=== PATIENT | male | born 1965 | race African-American/Black ===

== ENCOUNTER → 2024-09-25 14:09 | Outpatient (REF) | payer BC, SELFPAY | LOC: RCS 14:09 | PROVIDERS: ATTENDING PHYSICIAN Internal Medicine Cardiovascular Disease; FAMILY PHYSICIAN Internal Medicine; OTHER PHYSICIAN Internal Medicine Endocrinology, Diabetes & Metabolism; REFERRING PHYSICIAN Thoracic Surgery (Cardiothoracic Vascular Surgery) | DX: I48.0 Paroxysmal atrial fibrillation (principal) | CPT/HCPCS: 93005 ==

== ENCOUNTER 2024-09-28 07:07 | Day surgery (SDC) | payer BC, SELFPAY ==
--- NOTE | 2024-09-28 13:08 | ITS.CL.CARDI ---
Reagent Tender - Cardioversion
Cardioversion
Procedure Report:
Date of Procedure: 09/28/24
Procedure: Cardioversion
Indication: Symptomatic atrial fibrillation
Performing Physician: Ailyn Melgoza DO [facility]
Anticoagulation: Eliquis
Technique: The patient was brought to the holding area. Signed informed consent was obtained. A time out was called and performed. The patient was anesthetized by the anesthesia service. Anticoagulation status was reviewed and appropriate. R2 pads
were placed anteriorly and posteriorly. A 200 J synchronized biphasic shock restored normal sinus rhythm without significant bradycardia. There were no complications.
Conclusion: Uncomplicated cardioversion from atrial fibrillation to sinus rhythm.
Recommendation: Routine post cardioversion care. Continue senior living anticoagulation.
== END 2024-09-28 09:10 | disposition home or self-care (01) ==
LOC: CATH 07:07
PROVIDERS: ATTENDING PHYSICIAN Internal Medicine Cardiovascular Disease; FAMILY PHYSICIAN Internal Medicine; OTHER PHYSICIAN Internal Medicine Cardiovascular Disease
DX: Z79.01 Long term (current) use of anticoagulants (principal); I48.91 Unspecified atrial fibrillation
CPT/HCPCS: 92960; 93005

== ENCOUNTER 2024-10-04 16:22 | Emergency (ER) | payer BC, SELFPAY ==
[2024-10-04] VITALS (11 sets, daily range): BP systolic 125–147; BP diastolic 79–88; PULSE 68–84; BMI 39.5
[2024-10-04 17:29] LABS: % Basophils 0.6 % (0-2); % Eosinophils 4.4 % (0-6); % Immature Granulocytes 0.2 % (0-0.5); % Lymphocytes 15.7 % (20.5-51.1); % Monocytes 8.4 % (1.7-9.3); % Neutrophils 70.7 % (42.2-75.2); Absolute Basophils 0.1 10^3/uL (0-0.2); Absolute Eosinophils 0.4 10^3/uL (0-0.7); Absolute Lymphocytes 1.4 10^3/uL (1.2-3.4); Absolute Monocytes 0.8 10^3/uL (0.1-0.6); Absolute Neutrophils 6.4 10^3/uL (1.4-6.5); Hematocrit 46.1 % (39.0-52.0); Mean Corp Hgb Conc. 32.5 g/dL (33.0-37.0); Mean Corpuscular Hgb 29.8 pg (27.0-31.0); Mean Corpuscular Volume 91.5 fL (80.0-94.0); Nucleated Red Blood Cells % 0 % (-); Platelet Count 168 10^3/uL (130-400); Red Blood Cell Count 5.04 10^6/uL (4.70-6.10); White Blood Cell Count 9.1 10^3/uL (4.8-10.8)
[2024-10-04 18:38] LABS: ALT (SGPT) 55 U/L (0-50); AST (SGOT) 41 U/L (17-59); Albumin 3.6 g/dl (3.5-5.0); Alkaline Phosphatase 70 U/L (38-126); Blood Urea Nitrogen 22 mg/dl (9-20); Calcium 8.7 mg/dl (8.4-10.2); Carbon Dioxide 23 mmol/L (22-30); Estimated Creatinine Clearance 86 ml/min; Glucose 83 mg/dl (70-99); Total Bilirubin 0.4 mg/dl (0.2-1.3); Total Protein 6.7 g/dl (6.3-8.2); eGFR > 60.00
--- NOTE | 2024-10-04 18:53 | ED.GENMED ---
History of Present Illness
General
Chief Complaint: Fainting Sensation
Source: patient
Exam Limitations: none
Time Seen by Provider: 10/04/24 18:27
History of Present Illness
History of Present Illness:
This is a 59 year old male that comes in with c/o near syncope. State that he was in the bathroom on the toilet. Stats that he was sweaty and hot. States that he told his he did not feel well and she took his BP and it was 86/66. States that he
had also given himself an enema earlier and 4 min later he had the stool. States that he was not baring down. States that he did have some nausea. Denies any fever, chills, chest pain, SOB, vomiting, abd pain, diarrhea, black or blood stool,
Headache, dizziness, urinary burning.
Past History
Past History
ED Past Medical History: Arrthythmia (Atrial fib), HTN, Hypercholesterolemia and Other (type B aortic dissection)
ED Past Surgical History: Orthopedic (Bilateral patellar rupture, ) and Other (Gastric sleeve, )
Social History
Tobacco: Non-smoker
Alcohol: None
Drug: None
Personal:
Living: with family
Employment: Employed
Family History
Family History: Early CAD
Review of Systems
Review of Systems
All Other Systems: ROS reviewed and negative except as documented in HPI and ROS
Constitutional: Reports no symptoms; Denies fever or chills
EENT: Reports no symptoms
Respiratory: Reports no symptoms; Denies cough or trouble breathing
Cardiac: Reports no symptoms; Denies chest pain
ABD/GI: Reports nausea; Denies abdominal pain, vomiting, diarrhea, bloody stools or black stools
: Reports no symptoms; Denies dysuria or urgency
Musculoskeletal: Reports no symptoms
Skin: Reports no symptoms
Neurological: Reports no symptoms; Denies dizzy or headache
Psychiatric: Reports no symptoms
Phy Exam
General Physical Exam
General Presentation: well appearing and no apparent distress
General age: appears stated age
General Skin: warm and dry
General Habitus: normal
General Mental: alert
General Hydration: dry mucous membranes
ENT Exam
ENT Exam: TM's normal, pharynx normal and neck supple
Eye Exam
Eye Exam: EOMI
Cardiovascular Exam
Cardiovascular Exam: regular rate/rhythm, no edema, no murmur and normal peripheral pulses
Pulmonary Exam
Pulmonary Exam: lungs clear, no respiratory distress, no rales, chest non tender, no crackles, no rhonchi, no wheezing and no cough
Gastrointestinal Exam
Gastrointestinal Exam: normal bowel sounds, non tender, soft, no organomegaly, no pulsatile mass and non distended
Musculoskeletal Exam
Musculoskeletal Exam: full ROM and no edema
Skin Exam
Skin Exam: normal color, warm/dry, no rash and no petechia
Psychiatric Exam
Psychiatric Exam: normal mood/affect
Course
Orders/Labs/Results
Orders:
Orders
10/04/24 16:33
Electrocardiogram (*1) Urgent
Reason for Study: Syncope
EKG- Treatment ONCE
10/04/24 17:22
Complete Blood Count/With Diff Urgent
10/04/24 18:18
Comprehensive Metabolic Panel Urgent
10/04/24 18:44
Orthostatic VS- Treatment ONCE
0.9% Sodium Chloride 1000 ml [Nss] 1,000 ml IV BOLUS
10/04/24 19:13
US Abdomen Complete/Upper Urgent
Comment: Aortic dissection Type B
Reason For Exam: Near syncope
10/04/24 22:03
Troponin I Urgent
Abnormal Lab Results
10/04/24 12
17:22 18:18
MCHC 32.5 L g/dL
(33.0-37.0)
RDW 15.0 H %
(11.5-14.5)
Absolute Monos (auto) 0.8 H 10^3/uL
(0.1-0.6)
Lymphocytes % 15.7 L %
(20.5-51.1)
Chloride 108 H mmol/L
(98-107)
BUN 22 H mg/dl
(9-20)
ALT 55 H U/L
(0-50)
10/04/24 17:22
10/04/24 18:18
Dehydration, ALT slightly elevated. Troponin <0.012,
Vital Signs
Initial and Last Documented VS:
Initial Vital Signs
Temp Pulse Resp BP Pulse Ox
98.7 F 73 16 144/82 100
10/04/24 16:25 10/04/24 16:25 10/04/24 16:25 10/04/24 16:25 10/04/24 16:25
Last Documented Vital Signs
Temp Pulse Resp BP Pulse Ox
98.7 F 75 16 143/86 99
10/04/24 16:25 10/04/24 19:45 10/04/24 19:02 10/04/24 19:21 10/04/24 18:30
MDM/Problems Addressed
Differential Diagnosis Includes:
Dehydration, Coronary syndrome.
MDM/Problems Addressed:
This is a 59 year old male that comes in with c/o getting sweaty and hot when he was on the toilet. States that his BP was low. States that he did not pass out.
Will check labs, give IV fluids. Orthostatics. Patient has been able to get up to the BR and walks steady on his feet.
Back into see patient. Explained that he did tilt a little with his Orthostatics. Blood work shows dehydrated. Patient was given IV fluids. Patient has been up to the bathroom. States that he is feeling better. Will discharge home.
Chronic conditions affecting care:
Aortic dissection,
Acute Exacerbation and/or Progression of Chronic Illness:
NA
*Radiology
Radiology exam reviewed: radiology read reviewed (US- unremarkable limited abdominal ultrasound. )
*Pulse Oximetry
Patient hypoxic: no
*EKG
Interpreted by ED Provider?: Yes
Heart Rate: 68
Rate: normal
Rhythm: sinus
[place]: left axis deviation
Interval: normal interval
QRS Pattern: normal QRS
Ischemia: T-wave inversion (III, aVR, aVF, V4, V5 ,)
*[employer] Architect Interpretation
Rate: normal
Heart Rate: 68
Rhythm: sinus
*Critical Care Note
Total Time (30-74mins, 75-104mins- exclusive of procedures): Not Applicable
ED Attending Note
-
Portions of this chart may have been created with voice recognition software.� Occasional wrong word or��sound alike� substitutions may have occurred due to the inherent limitations of voice recognition software.
Discharge Plan
Departure
Patient Disposition: Home (Routine Discharge)
Date of Disposition: 10/04/24
Time of Disposition: 22:50
Patient with high blood pressure during this ER visit?: Yes
Condition: Good
Covid-19: Not Applicable
Discharge Problem:
Dehydration, Near syncope
Instructions: Near Fainting (DC), Dehydration in adults - ED discharge instructions, BLOOD PRESSURE
Prescriptions:
No Action
Calcium & Vitamin D
2 tab PO DAILY
spironolactone 25 MG tablet
25 mg PO DAILY
metoprolol succinate 100 MG tablet extended release 24 hr
200 mg PO BID
Eliquis 5 mg Tablet
5 mg PO BID 30 Days Qty: 60 0RF
atorvastatin [Lipitor] 80 MG tablet
80 mg PO QPM Qty: 30 3RF
doxazosin 1 MG tablet
1 mg PO BID Qty: 60 3RF
diltiazem HCl 180 MG capsule,extended release 24hr
180 mg PO BID Qty: 60 3RF
pantoprazole 40 MG tablet,delayed release (DR/EC)
40 mg PO DAILY Qty: 30 1RF
docusate sodium 100 MG capsule
100 mg PO BID Qty: 0 1RF
Mounjaro 7.5 mg/0.5 mL Pen Injector
7.5 mg SC QWEEK
Referrals:
UNKNOWN - PT DOES,NOT KNOW [Unknown Provider] -
Roberto Benites MD [Active] - Follow up in 2-3 days
Activity Restrictions/Additional Instructions:
As discussed, your blood work shows that you where dehydrated. Please increase your water intake to 8-8oz glasses daily. Your Troponin which is specific for your heart is normal. Your US did not see anything acute as they did not visualized the
aorta that is normally looked at with an abd ultrasound. Please follow up with the your [facility] for further evaluation. IF YOU HAVE ANY OTHER CONCERNS PLEASE RETURN TO THE EMERGENCY ROOM.
Interventions
Interventions:
*Risk Screen - Suicide Last Done: 10/04/24 16:25
*General Assessment Last Done: 10/04/24 16:25
*Neglect/Abuse Screening Last Done: 10/04/24 16:25
*ED COVID-19 Vaccine History Last Done: 10/04/24 16:25
Discharge Date and Time
Print Language: UPPER SORBIAN
[2024-10-04] MEDS: NSS 1000 IV (19:07)
[2024-10-04 19:11] LABS: Chloride 108 mmol/L (98-107); Potassium 4.6 mmol/L (3.5-5.1); Sodium 137 mmol/L (135-145)
[2024-10-04 22:38] LABS: Troponin I < 0.012 ng/ml
== END 2024-10-04 23:15 | disposition home or self-care (01) ==
LOC: EMR 16:22
PROVIDERS: EMERGENCY PHYSICIAN Emergency Medicine; FAMILY PHYSICIAN Internal Medicine
DX: E86.0 Dehydration (principal); R55 Syncope and collapse; I48.91 Unspecified atrial fibrillation; E78.00 Pure hypercholesterolemia, unspecified; I10 Essential (primary) hypertension; I71.00 Dissection of unspecified site of aorta; Z82.49 Family history of ischemic heart disease and other diseases of the circulatory system
CPT/HCPCS: 99284; 76700; 80053; 84484; 85025; 93005

== ENCOUNTER → 2025-01-10 12:34 | Outpatient (REF) | payer BC, SELFPAY | LOC: DHSLP 12:34 | PROVIDERS: ATTENDING PHYSICIAN Internal Medicine; FAMILY PHYSICIAN Internal Medicine | DX: G47.33 Obstructive sleep apnea (adult) (pediatric) (principal) | CPT/HCPCS: 95800 ==

== ENCOUNTER 2025-02-10 13:57 | Emergency (ER) | payer BC, SELFPAY ==
[2025-02-10 13:58] VITALS: BP 129/78
--- NOTE | 2025-02-10 14:58 | ED.GENMED ---
History of Present Illness
General
Chief Complaint: Abdominal Pain
Source: patient
Exam Limitations: none
Time Seen by Provider: 02/10/25 14:58
Nursing documentation reviewed up to this point in time: agreed with
History of Present Illness
History of Present Illness:
This is a 59 y/o male with past medical history of type aortic dissection, GERD, who presents emergency department today with concerns of right upper quadrant abdominal pain for the past 10 days. Patient reports that he had surgery at [facility] in
[place] for his aortic dissection as well as carotid bypass 10 days ago and ever since then, he has had persistent right upper quadrant pain. He does have a history of laparoscopic band procedure and gastric sleeve in 2014 but denies any
history of other intra-abdominal surgeries. He was seen at [facility] ER on the for the same symptoms and states that at that time, he had a normal CAT scan and normal evaluation in the ED and he had increase in his pantoprazole to 40 mg. He also
started taking MiraLAX. Patient states that these adjustments his medications have not helped his symptoms. Patient states that the pain symptoms not gotten worse but just has not been getting better. He is currently pain-free but states that the
pain comes and go at random is not related to food. He denies any chest pain. He denies any radiation of the pain to the back. He denies any shortness of breath. He denies any swelling in his lower extremities. He denies any nausea or vomiting,
fevers or chills. Patient denies any urinary symptoms.
Past History
Past History
ED Past Medical History: Arrthythmia (Atrial fib), HTN, Hypercholesterolemia and Other (type B aortic dissection)
ED Past Surgical History: Orthopedic (Bilateral patellar rupture, ) and Other (Gastric sleeve, )
Social History
Tobacco: Non-smoker
Alcohol: None
Drug: None
Personal:
Living: with family
Employment: Employed
Family History
Family History: Early CAD
Review of Systems
Review of Systems
All Other Systems: ROS reviewed and negative except as documented in HPI and ROS
Phy Exam
Physical Exam
Physical Exam:
General: Patient is well appearing and in no acute distress; non-toxic
Skin: Warm and dry, no rashes or lesions
Head: Normocephalic, atraumatic
Eyes: Sclera non-icteric. EOMs intact.
Cardiac: Regular rate and rhythm, no murmurs
Peripheral Vascular: No lower extremity swelling or edema
Pulm: Normal respiratory effort, no wheezes, rales, rhonchi
Abdomen: No abdominal tenderness to palpation, abdomen soft
Musculoskeletal: No tenderness to palpation in the midline or paraspinal musles
Neuro: CN II-XII intact, no focal neurologic deficits.
Psychiatric: Appropriate mood and affect.
Course
Orders/Labs/Results
Orders:
Orders
02/10/25 15:18
Electrocardiogram (*1) Urgent
Reason for Study: Chest Pain
EKG- Treatment ONCE
US Abdomen Complete/Upper Urgent
Comment:
Reason For Exam: right upper quadrant pain
02/10/25 15:51
Complete Blood Count/With Diff Urgent
Comprehensive Metabolic Panel Urgent
Lipase Urgent
Troponin I Urgent
Abnormal Lab Results
02/10/25
15:51
WBC 10.9 H 10^3/uL
(4.8-10.8)
RBC 3.25 L 10^6/uL
(4.70-6.10)
Hgb 9.7 L g/dL
(13.0-18.0)
Hct 28.9 L %
(39.0-52.0)
RDW 14.6 H %
(11.5-14.5)
Abs Immat Gran (auto) 0.1 H 10^3/uL
(0-0.05)
Absolute Neuts (auto) 8.1 H 10^3/uL
(1.4-6.5)
Absolute Monos (auto) 1.1 H 10^3/uL
(0.1-0.6)
Lymphocytes % 11.1 L %
(20.5-51.1)
Monocytes % 10.2 H %
(1.7-9.3)
ALT 60 H U/L
(0-50)
Albumin 2.9 L g/dl
(3.5-5.0)
Lipase 315 H U/L
(23-300)
02/10/25 15:51
02/10/25 15:51
Vital Signs
Initial and Last Documented VS:
Initial Vital Signs
Temp Pulse Resp BP Pulse Ox
98.6 F 90 16 129/78 100
02/10/25 13:58 02/10/25 13:58 02/10/25 13:58 02/10/25 13:58 02/10/25 13:58
Last Documented Vital Signs
Temp Pulse Resp BP Pulse Ox
100.1 F 72 18 107/69 98
02/10/25 18:43 02/10/25 19:00 02/10/25 19:00 02/10/25 19:30 02/10/25 19:00
MDM/Problems Addressed
Differential Diagnosis Includes:
Differentials include gastritis, GERD, biliary colic, musculoskeletal sprain/strain
MDM/Problems Addressed:
This is a 59 y/o male with past medical history of type aortic dissection, GERD, who presents emergency department today with concerns of right upper quadrant abdominal pain for the past 10 days. Patient reports that he had surgery at [facility] in
[place] for his aortic dissection as well as carotid bypass 10 days ago and ever since then, he has had persistent right upper quadrant pain. Socially seen in an emergency department in [place] around 9 days ago and had a CAT scan done of
the abdomen done which was normal. He saw his primary care provider again for the symptoms and his primary thought this could be related to gastric ulcer and he was given pantoprazole and instructed to increase the dose to 40 mg twice daily for 2
weeks and reassess. Patient has been on this regimen for 3 days and notes no improvement. Patient denies any dark tarry stools, denies any rectal bleeding. On physical exam, patient is well-appearing no acute distress his abdomen is soft
nontender. Patient arrives to the ER pain-free, he had no pain on exam. He is afebrile. He has no white blood cell count. His CMP is unremarkable, his troponin is undetectable. No ischemic changes on EKG. Abdomen ultrasound shows no evidence
of biliary colic or obstruction, no evidence of pancreatitis. Patient's hemoglobin is 9.7 today however did look at patient's recent labs on his MyChart which shows that his hemoglobin at baseline has been lower since he lost blood during his
recent surgery, his most recent previous hemoglobin is 10.3 which was performed this past week in the setting of no active bleeding, no concern for GI bleed at this time. Advised patient to continue his adjusted medication regimen that his PCP
started and to schedule an appointment with his PCP for reassessment. In light of no active pain, and unremarkable workup, do not feel that further CT imaging would be helpful at this time. Referral given for GI. Patient stable for discharge.
Chronic conditions affecting care:
Type B aortic dissection, hypertension
*Pulse Oximetry
Patient hypoxic: no
*EKG
Interpreted by ED Provider?: Yes
EKG Intrepretation Date: 02/10/25
Interpretation: abnormal
Comparison EKG: changes noted (occasional PACs)
Heart Rate: 83
Rate: normal
Rhythm: sinus
[place]: normal axis
Interval: normal interval
*Critical Care Note
Total Time (30-74mins, 75-104mins- exclusive of procedures): Not Applicable
Data Reviewed
Review of Other/Old Records Reveals: Records (Reviewed previous external medical summary, reviewed ER physician documentation from 10/04/2024, reviewed discharge summary from 03/24/2023 patient seen for)
Source: patient and records
Patient Management
Escalation/DeEscalation of care consider admission/obs:
admit not indicated, pt stable for discharge
Update Note
Update Note:
7:06 am-- update patient is currently pain free, awaiting ultrasound results
ED Attending Note
-
Portions of this chart may have been created with voice recognition software.� Occasional wrong word or��sound alike� substitutions may have occurred due to the inherent limitations of voice recognition software.
Discharge Plan
Departure
Patient Disposition: Home (Routine Discharge)
Date of Disposition: 02/10/25
Time of Disposition: 19:43
Patient with high blood pressure during this ER visit?: Yes
Condition: Good
Discharge Problem:
Abdominal pain
Instructions: Abdominal Pain, BLOOD PRESSURE
Prescriptions:
No Action
Calcium & Vitamin D
2 tab PO DAILY
spironolactone 25 MG tablet
25 mg PO DAILY
metoprolol succinate 100 MG tablet extended release 24 hr
200 mg PO DAILY
Eliquis 5 mg Tablet
5 mg PO BID 30 Days Qty: 60 0RF
atorvastatin [Lipitor] 80 MG tablet
80 mg PO QPM Qty: 30 3RF
doxazosin 1 MG tablet
1 mg PO BID Qty: 60 3RF
pantoprazole 40 MG tablet,delayed release (DR/EC)
40 mg PO BID
polyethylene glycol 3350 [Miralax] 17 gram/dose Powder
4 g PO DAILY
aspirin [Aspir-81] 81 mg Tablet,Delayed Release (Dr/Ec)
81 mg PO DAILY
Referrals:
Letha Lutz MD [Family Provider] -
Fabio Ceballos DO [Active] - Call in 1-3 days for appt
Activity Restrictions/Additional Instructions:
Please call the attached number to schedule an appointment to see gastroenterology in follow up.
Please keep a journal of when you have episodes of pain.
Your hemoglobin today is 9.7 which is around your baseline as documented in your MyChart. Please follow-up with your primary care provider in 1 week to have your blood work repeated.
PLEASE RETURN EMERGENCY DEPARTMENT SHOULD YOU DEVELOP CHEST PAIN, SHORTNESS OF BREATH, HE WORSEN HER SYMPTOMS, INTRACTABLE NAUSEA OR VOMITING, FEVERS OR CHILLS, DARK TARRY STOOLS, RECTAL BLEEDING, OR ANY OTHER SIGNS OR SYMPTOMS WORRISOME TO YOU.
Interventions
Interventions:
*Risk Screen - Suicide Last Done: 02/10/25 20:03
*General Assessment Last Done: 02/10/25 16:00
*Neglect/Abuse Screening Last Done: 02/10/25 20:03
*ED- Fall Risk Assessment Last Done: 02/10/25 16:00
*ED COVID-19 Vaccine History Last Done: 02/10/25 16:00
*Nursing Disposition Last Done: 02/10/25 20:03
UF-[id number] Assessment Last Done: 02/10/25 20:04
Discharge Date and Time
Discharge Date/Time: 02/10/25 20:12
Print Language: POLISH
[2025-02-10 16:01] LABS: % Basophils 0.6 % (0-2); % Immature Granulocytes 0.5 % (0-0.5); % Lymphocytes 11.1 % (20.5-51.1); % Monocytes 10.2 % (1.7-9.3); % Neutrophils 74.6 % (42.2-75.2); Absolute Basophils 0.1 10^3/uL (0-0.2); Absolute Eosinophils 0.3 10^3/uL (0-0.7); Absolute Immature Granulocytes 0.1 10^3/uL (0-0.05); Absolute Lymphocytes 1.2 10^3/uL (1.2-3.4); Absolute Monocytes 1.1 10^3/uL (0.1-0.6); Absolute Neutrophils 8.1 10^3/uL (1.4-6.5); Hematocrit 28.9 % (39.0-52.0); Hemoglobin 9.7 g/dL (13.0-18.0); Mean Corp Hgb Conc. 33.6 g/dL (33.0-37.0); Mean Corpuscular Hgb 29.8 pg (27.0-31.0); Mean Corpuscular Volume 88.9 fL (80.0-94.0); Nucleated Red Blood Cells % 0 % (-); Platelet Count 282 10^3/uL (130-400); Red Blood Cell Count 3.25 10^6/uL (4.70-6.10); Red Cell Dist. Width 14.6 % (11.5-14.5); White Blood Cell Count 10.9 10^3/uL (4.8-10.8)
[2025-02-10 16:21] LABS: ALT (SGPT) 60 U/L (0-50); AST (SGOT) 42 U/L (17-59); Albumin 2.9 g/dl (3.5-5.0); Alkaline Phosphatase 106 U/L (38-126); Blood Urea Nitrogen 13 mg/dl (9-20); Calcium 8.9 mg/dl (8.4-10.2); Carbon Dioxide 27 mmol/L (22-30); Chloride 106 mmol/L (98-107); Glucose 93 mg/dl (70-99); Lipase 315 U/L (23-300); Potassium 4.7 mmol/L (3.5-5.1); Sodium 139 mmol/L (135-145); Total Bilirubin 0.9 mg/dl (0.2-1.3); Total Protein 6.4 g/dl (6.3-8.2); eGFR > 60.00
[2025-02-10 16:25] LABS: Troponin I < 0.012 ng/ml
[2025-02-10 18:43] VITALS: BP 147/74
[2025-02-10 19:30] VITALS: BP 107/69
== END 2025-02-10 20:12 | disposition home or self-care (01) ==
LOC: EMR 13:57
PROVIDERS: Physician Assistant; EMERGENCY PHYSICIAN Emergency Medicine; FAMILY PHYSICIAN Internal Medicine
DX: R10.11 Right upper quadrant pain (principal); E78.00 Pure hypercholesterolemia, unspecified; I10 Essential (primary) hypertension; Z98.84 Bariatric surgery status; Z79.899 Other long term (current) drug therapy
CPT/HCPCS: 99284; 76700; 80053; 83690; 84484; 85025; 93005

== ENCOUNTER 2025-10-04 06:11 | Day surgery (SDC) | payer BC, SELFPAY ==
[2025-10-04 09:10] VITALS: BMI 30.8
[2025-10-04 09:11] VITALS: BP 123/75
[2025-10-04 09:36] LABS: Glucose - Point of Care 68 mg/dl (70-99)
[2025-10-04] MEDS: DEXTROSE 50% SYRINGE 12.5 GRAMS IV (09:38)
[2025-10-04 10:01] LABS: Glucose - Point of Care 93 mg/dl (70-99)
== END 2025-10-04 11:11 | disposition home or self-care (01) ==
LOC: GI 06:11
PROVIDERS: ATTENDING PHYSICIAN Internal Medicine Gastroenterology
DX: R19.4 Change in bowel habit (principal); R63.4 Abnormal weight loss; D50.9 Iron deficiency anemia, unspecified; K64.8 Other hemorrhoids; K57.30 Diverticulosis of large intestine without perforation or abscess without bleeding; R12 Heartburn; K44.9 Diaphragmatic hernia without obstruction or gangrene; K31.89 Other diseases of stomach and duodenum
CPT/HCPCS: 45380; 43239; 82962; 88305; 88342